=== PATIENT | female | born 1970 | race Caucasian/White ===

== ENCOUNTER 2018-09-25 15:06 | Emergency (ER) | payer OTHER | END 2018-09-25 21:25 | disposition left against medical advice (07) | LOC: JER 15:06 ==

== ENCOUNTER 2023-10-04 13:41 | Emergency (ER) | payer OTHER ==
[2023-10-04 13:56] VITALS: BP 114/60; PULSE 74; RESP 18; TEMP 98.4; BMI 36.6
[2023-10-04] MEDS ORDERED: IBUPROFEN 600 MG TABLET (FP) PO ONE (14:57)
[2023-10-04] MEDS: IBUPROFEN 600 MG TABLET (FP) PO ONE (15:00)
== END 2023-10-04 15:08 | disposition home or self-care (01) ==
LOC: JERFT 13:41
DX: R05.9 Cough, unspecified (principal); R09.81 Nasal congestion; M79.10 Myalgia, unspecified site; R09.89 Other specified symptoms and signs involving the circulatory and respiratory systems; R51.9 Headache, unspecified; J02.9 Acute pharyngitis, unspecified; J34.89 Other specified disorders of nose and nasal sinuses; Z20.822 Contact with and (suspected) exposure to COVID-19
CPT/HCPCS: 0241U-QW; 99283-25